=== PATIENT | male | born 1995 | race Caucasian/White ===

== ENCOUNTER 2019-10-14 10:47 | Emergency (ER) | payer SELFPAY ==
--- NOTE | 2019-10-14 12:53 | ED Physician Documentation ---
History of Present Illness - Stated complaint Stated Complaint: MIGRAINE - Chief complaint Chief Complaint: General - History obtained from History obtained from: Patient - History of Present Illness Timing: How many days ago (5) Pain level max: 7 Pain level now: 5 - Additonal information Additional information: 24-year-old male presents to the emergency department with a left-sided headache for the past 5 days. Has a longstanding history of migraine headaches. He states that this is lasting longer than usual. He states that he has a family history of brain aneurysms and is concerned that this may be an aneurysm. Worse with light and sound, better with Excedrin. No seizure activity. No loss of consciousness. No vomiting, occasional nausea. Review of Systems Ten Systems: 10 systems reviewed and negative Constitutional: denies: Fever, Chills Throat: denies: Sore throat Cardiac: denies: Chest pain / pressure Respiratory: denies: Cough GI: denies: Vomiting, Diarrhea Skin: denies: Rash Musculoskeletal: denies: Neck pain, Back pain Neurologic: denies: Focal weakness, Numbness, Seizure, Confused, Altered mental status, Head injury, LOC PD PAST MEDICAL HISTORY - Past Medical History Past Medical History: Yes Cardiovascular: None Respiratory: None Neuro: Migraines Endocrine/Autoimmune: None GI: None : None HEENT: None Psych: None Musculoskeletal: None Derm: None - Past Surgical History Past Surgical History: No - Allergies Allergies/Adverse Reactions: Allergies Allergy/AdvReac Type Severity Reaction Status Date / Time No Known Drug Allergies Allergy Verified 10/14/19 11:10 - Social History Does the pt smoke?: No Smoking Status: Never smoker Does the pt drink ETOH?: No Does the pt have substance abuse?: Yes Substance Use and Type: Marijuana - Immunizations Immunizations are current?: Yes - POLST Patient has POLST: No PD ED PE NORMAL - Vitals Vital signs reviewed: Yes - General General: Alert and oriented X 3, No acute distress, Well developed/nourished - HEENT HEENT: Atraumatic, PERRL, EOMI, Ears normal, Moist mucous membranes, Pharynx benign - Neck Neck: Supple, no meningeal sign, No bony TTP - Cardiac Cardiac: RRR, Strong equal pulses - Respiratory Respiratory: No respiratory distress, Clear bilaterally - Abdomen Abdomen: Soft, Non tender, Non distended - Derm Derm: Warm and dry - Extremities Extremities: Normal ROM s pain - Neuro Neuro: Alert and oriented X 3, fact checker 2-12 intact, No motor deficit, No sensory deficit, Normal speech Eye Opening: Spontaneous Motor: Obeys Commands Verbal: Oriented GCS Score: 15 - Psych Psych: Normal mood, Normal affect Results - Vitals Vitals: Vital Signs - 24 hr 10/14/19 10/14/19 10/14/19 11:10 12:39 14:27 Temperature 37.1 C 36.8 C 37.3 C Heart Rate 70 57 L 100 Respiratory 16 16 18 Rate Blood Pressure 121/79 142/88 H 131/85 H O2 Saturation 98 99 100 Oxygen O2 Source Room air - Rads (name of study) CT angio head Radiology: Prelim report reviewed, EMP read contemporaneously, See rad report (normal) PD MEDICAL DECISION MAKING - ED course Complexity details: reviewed results, considered differential, d/w patient ED course: 24-year-old male with a headache for the past 5 days. Feels better after Imitrex. Was very concerned about potential aneurysm of the brain. No acute findings on CT angiogram. No evidence of subarachnoid hemorrhage. Patient counseled regarding signs and symptoms for which I believe and urgent re- evaluation would be necessary. Patient with good understanding of and agreement to plan and is comfortable going home at this time This document was made in part using voice recognition software. While efforts are made to proofread this document, sound alike and grammatical errors may occur. Departure - Departure Disposition: 01 Home, Self Care Clinical Impression: Migraine Qualifiers: Migraine type: unspecified Status migrainosus presence: without status migrainosus Intractability: not intractable Qualified Code(s): G43.909 - Migraine, unspecified, not intractable, without status migrainosus Condition: Good Instructions: ED Headache Migraine Follow-Up: your,doctor as needed [Other] Comments: the CT angiogram of your head is normal today. We did not see any masses or aneurysms. Follow-up with your doctor for further care. Return if you worsen Discharge Date/Time: 10/14/19 14:39
[2019-10-14] MEDS ORDERED: IOVERSOL 320 100 ML VIAL IVP ONE ×2 (13:07→14:39)
--- NOTE | 2019-10-14 14:13 | CT Report ---
PROCEDURE: ANGIO HEAD W/WO INDICATIONS: L sided headache, fam hx of brain aneurysms CONTRAST: IV CONTRAST: Optiray 320 ml: 80 PO CONTRAST: *NO PO CONTRAST TECHNIQUE: Precontrast 4.5 mm thick angled axial sections acquired from the foramen magnum to the vertex. Afte r the administration of intravenous contrast, 1 mm thick sections acquired through the [place] of [place] is. Postcontrast 4.5 mm thick sections then re-acquired from the foramen magnum to the vertex. 3-di mensional fucqyfp-ffahqcmxp-kwnuqqyays (MIP) and/or volume rendering reformats were acquired of the c entral intracranial vasculature. For radiation dose reduction, the following was used: automated ex posure control, adjustment of mA and/or kV according to patient size. COMPARISON: None FINDINGS: Image quality: Excellent. Anterior circulation: Intracranial internal carotid arteries are normal in size and flow. The flow within the paired anterior cerebral arteries is normal and symmetric. The flow within the middle cer ebral arteries is normal and symmetric. The anterior communicating artery is seen. No aneurysms are seen. Posterior circulation: Visualized portions of the vertebral arteries demonstrate normal caliber, and join to form a normal appearing basilar artery. Flow within the posterior cerebral arteries is norm al and symmetric. No aneurysms are seen. Dural sinuses demonstrate normal postcontrast enhancement. CSF spaces: Ventricles are normal in size and shape. Basal cisterns are patent. No extra-axial flu id collections. Brain: No midline shift. No intracranial bleeds or masses. Aponte-white matter interface appears int act. Skull and face: Calvarium and facial bones appear intact, without suspicious lesions. Sinuses: Right sphenoid sinus mucosal thickening with diffuse sinus wall thickening. Mastoids are michael ar. IMPRESSION: 1. No acute intracranial disease process. 2. No intracranial hemorrhage. 3. No abnormal cranial mass or mass effect. 4. No large vessel occlusion, vascular stenosis, vascular dissection or aneurysm. 5. Severe chronic right sphenoid sinusitis. Reviewed by: Shelby Garrett MD, PhD on 10/14/2019 2:11 PM PDT Approved by: Shelby Garrett MD, PhD on 10/14/2019 2:11 PM PDT Station ID: [id number]
[2019-10-14 14:28] VITALS: BP 131/85
[2019-10-14] MEDS ORDERED: SUMAtriptan 6 MG/0.5 ML VIAL SUBQ STA (14:30)
== END 2019-10-14 14:39 | disposition home or self-care (01) ==
LOC: ED 10:47
DX: G43.909 Migraine, unspecified, not intractable, without status migrainosus (principal)
CPT/HCPCS: 36415; 70496; 96372; 99284; Q9967

== ENCOUNTER 2021-09-21 11:16 | Emergency (ER) | payer MEDICAID ==
[2021-09-21] MEDS ORDERED: HYDROmorphone 1 MG/ML CARPUJECT IVP STA (11:27)
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
[2021-09-21] MEDS ORDERED: ONDANSETRON 4 MG/2 ML VIAL IVP STA (11:33)
[2021-09-21] MEDS ORDERED: fentaNYL 100 MCG/2 ML VIAL IVP STA ×3 (11:33→13:38)
[2021-09-21 11:35] LABS: BASOPHILS # (AUTO) 0.1 10^3/uL (0.0-0.1); BASOPHILS % (AUTO) 0.6 %; EOSINOPHILS # (AUTO) 0.7 10^3/uL (0.0-0.7); EOSINOPHILS % (AUTO) 5.2 %; HCT - HEMATOCRIT 44.2 % (42.0-52.0); HGB - HEMOGLOBIN 15.7 g/dL (14.0-18.0); LYMPHOCYTES # (AUTO) 4.1 10^3/uL (1.5-3.5); LYMPHOCYTES % (AUTO) 32.4 %; MEAN CORPUSCULAR HEMOGLOBIN 31.8 pg (27.0-31.0); MEAN CORPUSCULAR HGB CONC 35.5 g/dL (32.0-36.0); MEAN CORPUSCULAR VOLUME 89.5 fL (80.0-94.0); MEAN PLATELET VOLUME 8.9 fL (7.4-11.4); MONOCYTES # (AUTO) 0.8 10^3/uL (0.0-1.0); MONOCYTES % (AUTO) 6.1 %; NEUTROPHILS # (AUTO) 7.1 10^3/uL (1.5-6.6); NEUTROPHILS % (AUTO) 55.3 %; PLT - PLATELET COUNT 318 10^3/uL (130-450); RED BLOOD COUNT 4.94 10^6/uL (4.70-6.10); RED CELL DISTRIBUTION WIDTH 12.5 % (12.0-15.0); WHITE BLOOD COUNT 12.8 x10^3/uL (4.8-10.8)
[2021-09-21 11:50] LABS: ALBUMIN 4.8 g/dL (3.2-5.5); ALBUMIN/GLOBULIN RATIO 1.7 (1.0-2.2); BILIRUBIN,TOTAL 0.9 mg/dL (0.2-1.0); CALCIUM 10.2 mg/dL (8.5-10.3); CREATININE 1.1 mg/dL (0.6-1.2); POTASSIUM 3.6 mmol/L (3.5-5.0); TOTAL PROTEIN 7.6 g/dL (6.7-8.2)
[2021-09-21 12:03] VITALS: BP 163/138
[2021-09-21] MEDS ORDERED: SODIUM CHLORIDE 0.9% 1,000 ML IV STA (12:18)
[2021-09-21] MEDS ORDERED: fentaNYL 100 MCG/2 ML VIAL ONE (12:19)
[2021-09-21] MEDS ORDERED: KETOROLAC 30 MG/ML VIAL IVP STA (12:49)
--- NOTE | 2021-09-21 13:42 | Ultrasound Report ---
PROCEDURE: Testicle w/Doppler Limited INDICATIONS: left testicular pain; ? torsion TECHNIQUE: Real-time scanning was performed of the scrotum and testicles, with image documentation. Color and p ulse Doppler interrogation was performed of both testicles. COMPARISON: None. FINDINGS: Right: Testicle is normal in size at 4.9 x 2.4 x 3.4 cm, and homogenous in echotexture. No grayscale changes in the testicle to suggest torsion or mass. Epididymis is normal in overall size and morphol ogy. No hydrocele or varicoceles. Overlying scrotal skin is normal in thickness. Left: Testicle is normal in size at 5.6 x 2.3 x 3.4 cm, and homogeneous in echotexture. No negron scal e changes in the testicle to suggest torsion 4 mass. Epididymis is normal in overall size and morphol ogy. No hydrocele or varicoceles. Overlying scrotal skin is normal in thickness. Doppler: Color and pulse Doppler demonstrate normal and symmetric arterial flow in both testicles. IMPRESSION: Normal scrotal ultrasound. Reviewed by: Derrell Roblero MD on 09/21/2021 1:40 PM PDT Approved by: Derrell Roblero MD on 09/21/2021 1:40 PM PDT Station ID: [id number]
--- NOTE | 2021-09-21 13:45 | CT Report ---
PROCEDURE: Abdomen/Pelvis WO INDICATIONS: Sudden onset left testicular pain, question ureteral colic. TECHNIQUE: Noncontrast 5 mm thick sections acquired from the diaphragms to the symphysis. 5 mm coronal and sagi ttal reformats were then performed. For radiation dose reduction, the following was used: automated exposure control, adjustment of mA and/or kV according to patient size. COMPARISON: None. FINDINGS: Mildly distended/dilated left ureter with periureteric fat stranding. The right ureter is unremarkabl e. There is no hydronephrosis or perinephric fat stranding. There is a nonobstructing punctate left r enal calculus in the upper pole measuring approximately 1 mm. Otherwise normal appearance of the kidn eys. The urinary bladder is normal. Unremarkable unenhanced CT appearance of the liver, spleen, gallbladder, pancreas, and adrenal glands . No acute enteric process. The unenhanced aorta is within normal limits. No threshold enlarged intra -abdominal, retroperitoneal, pelvic, or inguinal lymph node. No significant osseous abnormality demon strated. IMPRESSION: Fluid distention and borderline dilatation of the left ureter with periureteric fat stranding in the mid and distal segments. Findings suggest recent stone passage given the provided clinical history. Nonobstructing punctate 1 mm calculus in the left upper pole kidney. No additional urinary tract calculus or hydroureteronephrosis. Reviewed by: Derrell Roblero MD on 09/21/2021 1:44 PM PDT Approved by: Derrell Roblero MD on 09/21/2021 1:44 PM PDT Station ID: [id number]
[2021-09-21 14:12] LABS: BILIRUBIN,URINE NEGATIVE (NEGATIVE); GLUCOSE, URINE (UA) NEGATIVE (NEGATIVE); KETONES,URINE (UA) NEGATIVE (NEGATIVE); LEUKOCYTE ESTERASE, URINE NEGATIVE (NEGATIVE); NITRITE,URINE NEGATIVE (NEGATIVE); OCCULT BLOOD,URINE LARGE (NEGATIVE); PROTEIN,URINE NEGATIVE (NEGATIVE); UROBILINOGEN,URINE 0.2 (NORMAL) E.U./dL (NORMAL)
[2021-09-21 14:23] LABS: CLARITY,URINE CLEAR (CLEAR)
[2021-09-21 14:24] LABS: BACTERIA,URINE None Seen /HPF (None Seen); SQUAMOUS EPITHELIAL CELL,UR NONE SEEN (<= Few); WBC,URINE 0-3 /HPF (0-3)
== END 2021-09-21 14:34 | disposition home or self-care (01) ==
LOC: ED 11:16
DX: N36.8 Other specified disorders of urethra (principal)
CPT/HCPCS: 36415; 74176; 76870; 80053; 81001; 83690; 85025; 93976; 96374; 96375; 96376; 99283; 99285; J1170; 81003; 87086

== ENCOUNTER 2022-05-31 10:28 | Outpatient (CLI) | payer MEDICAID ==
--- NOTE | 2022-05-31 11:26 | XRAY Report ---
PROCEDURE: Shoulder 3 View LT INDICATIONS: LEFT SHOULDER PAIN TECHNIQUE: 4 views of the shoulder were acquired. COMPARISON: None. FINDINGS: Bones: No fractures or dislocations. No suspicious bony lesions. Visualized ribs appear intact. Soft tissues: No suspicious soft tissue calcifications. IMPRESSION: No acute bony abnormality. Reviewed by: Ashu Ram on 05/31/2022 11:25 AM [facility] Approved by: Ashu Ram on 05/31/2022 11:25 AM [facility] Station ID: [id number]
== END 2022-05-31 10:29 | disposition home or self-care (01) ==
LOC: DI.WOS 10:28
PROVIDERS: ATTEND Orthopaedic Surgery
DX: M25.512 Pain in left shoulder (principal)

== ENCOUNTER 2023-11-05 11:49 | Outpatient (CLI) | payer SELFPAY | END 2023-11-05 23:59 | disposition critical access hospital (66) | LOC: EMS 11:49 | DX: R55 Syncope and collapse (principal); R42 Dizziness and giddiness; R61 Generalized hyperhidrosis; Z20.822 Contact with and (suspected) exposure to COVID-19 | CPT/HCPCS: A0425; A0429 ==

== ENCOUNTER 2023-11-05 12:18 | Emergency (ER) | payer SELFPAY ==
[2023-11-05 12:35] VITALS: O2SAT 98
--- NOTE | 2023-11-05 12:51 | XRAY Report ---
PROCEDURE: Chest 1V INDICATIONS: chest pain TECHNIQUE: One view of the chest was acquired. COMPARISON: 02/21/2022. FINDINGS: Surgical changes and devices: None. Lungs and pleura: No pleural effusions or pneumothorax. Lungs are clear. Mediastinum: Mediastinal contours appear normal. Heart size is normal. Bones and chest wall: No suspicious bony lesions. Overlying soft tissues appear unremarkable. IMPRESSION: No acute cardiopulmonary process. Reviewed by: John Franco MD on 11/05/2023 12:50 PM PDT Approved by: John Franco MD on 11/05/2023 12:50 PM PDT Station ID: [id number]
[2023-11-05 13:03] LABS: BASOPHILS # (AUTO) 0.1 10^3/uL (0.0-0.1); BASOPHILS % (AUTO) 0.7 %; EOSINOPHILS # (AUTO) 0.3 10^3/uL (0.0-0.7); EOSINOPHILS % (AUTO) 4.1 %; HCT - HEMATOCRIT 47.5 % (42.0-52.0); HGB - HEMOGLOBIN 16.2 g/dL (14.0-18.0); LYMPHOCYTES # (AUTO) 1.8 10^3/uL (1.5-3.5); LYMPHOCYTES % (AUTO) 22.9 %; MEAN CORPUSCULAR HEMOGLOBIN 30.3 pg (27.0-31.0); MEAN CORPUSCULAR HGB CONC 34.1 g/dL (32.0-36.0); MONOCYTES # (AUTO) 0.5 10^3/uL (0.0-1.0); MONOCYTES % (AUTO) 6.6 %; NEUTROPHILS % (AUTO) 65.4 %; PLT - PLATELET COUNT 302 10^3/uL (130-450); RED BLOOD COUNT 5.34 10^6/uL (4.70-6.10); RED CELL DISTRIBUTION WIDTH 12.2 % (12.0-15.0); WHITE BLOOD COUNT 7.6 x10^3/uL (4.8-10.8)
[2023-11-05 13:13] LABS: ALBUMIN 4.8 g/dL (3.2-5.5); ALBUMIN/GLOBULIN RATIO 1.8 (1.0-2.2); BILIRUBIN,TOTAL 0.7 mg/dL (0.2-1.0); CALCIUM 10.1 mg/dL (8.5-10.3); CREATININE 0.9 mg/dL (0.6-1.3); TOTAL PROTEIN 7.4 g/dL (6.4-8.9)
--- NOTE | 2023-11-05 13:17 | ED Physician Documentation ---
PD HPI SYNCOPE - Stated complaint Stated Complaint: SYNCOPAL EPISODE - Chief complaint Chief Complaint: Neuro - History obtained from History obtained from: Patient - Additional information Additional information: This is a very nice 28-year-old male who has no significant past medical history who presents after a possible syncopal episode at home. 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 He ate in the unit was sitting on the couch, felt dizzy, stood up to try to move around, and then believes he passed out. He states he thinks he was out for approximately 5 minutes. This was unwitnessed, But patient states he does not believe he had any injuries in the fall. He did not have any incontinence, no tongue biting orOther injuries. He feels back to baseline now. This is never happened to him before. He denies any new medications, supplements, no drugs or alcohol, ate and drink per normal today, feels that he is staying well-hydrated, denies any exposure to any chemicals at work, has no personal or family history of early heart disease, has not had any issues with shortness of breath, chest pain, dizziness with activity in the past. Review of Systems Constitutional: reports: Reviewed and negative Eyes: reports: Reviewed and negative Ears: reports: Reviewed and negative Nose: reports: Reviewed and negative Throat: reports: Reviewed and negative Cardiac: reports: Reviewed and negative Respiratory: reports: Reviewed and negative GI: reports: Reviewed and negative : reports: Reviewed and negative Skin: reports: Reviewed and negative Musculoskeletal: reports: Reviewed and negative Neurologic: reports: Syncope PD PAST MEDICAL HISTORY - Past Medical History Past Medical History: Yes Cardiovascular: None Respiratory: None Neuro: Migraines Endocrine/Autoimmune: None GI: None : None HEENT: None Psych: Anxiety Musculoskeletal: None Derm: None - Past Surgical History Past Surgical History: No - Present Medications Home Medications: Ambulatory Orders Medication Instructions Recorded Confirmed oxyCODONE [Roxicodone] 5 mg PO TID PRN #10 tablet 09/21/21 HYDROcod/ACETAM 5/325 [Hobbs 5/325] 1 ea PO Q6H PRN #15 tablet 02/21/22 Ondansetron Odt [Zofran] 4 mg TL Q6H PRN #20 tablet 02/21/22 Pantoprazole [Protonix] 40 mg PO DAILY 30 Days #30 tablet 02/21/22 Sucralfate [Carafate] 1 gm PO ACHS #40 tablet 02/21/22 - Allergies Allergies/Adverse Reactions: Allergies Allergy/AdvReac Type Severity Reaction Status Date / Time ketamine Allergy Respiratory Verified 11/05/23 12:34 - Social History Does the pt smoke?: No Smoking Status: Never smoker Does the pt drink ETOH?: No Does the pt have substance abuse?: No Substance Use and Type: Marijuana - Immunizations Immunizations are current?: Yes - POLST Patient has POLST: No PD ED PE NORMAL - Vitals Vital signs reviewed: Yes - General General: Alert and oriented X 3, No acute distress, Well developed/nourished - HEENT HEENT: Atraumatic, PERRL, EOMI, Moist mucous membranes, Pharynx benign - Neck Neck: Supple, no meningeal sign, No JVD - Cardiac Cardiac: RRR, No murmur, No gallop, No rub - Respiratory Respiratory: No respiratory distress, Clear bilaterally - Abdomen Abdomen: Normal bowel sounds, Soft, Non tender, Non distended - Extremities Extremities: No deformity, No tenderness to palpate, Normal ROM s pain, No edema, No calf tenderness / cord - Neuro Neuro: Alert and oriented X 3, cleaning validation consultant 2-12 intact, No motor deficit, No sensory deficit, Normal speech Eye Opening: Spontaneous Motor: Obeys Commands Verbal: Oriented GCS Score: 15 - Psych Psych: Normal mood, Normal affect Results - Vitals Vitals: Vital Signs - 24 hr 11/05/23 11/05/23 11/05/23 12:30 12:34 14:34 Temperature 36.6 C Heart Rate 77 74 69 Respiratory 18 16 20 Rate Blood Pressure 136/89 H 124/76 92/72 O2 Saturation 98 97 98 Oxygen O2 Source Room air - EKG (time done) No standard instances EKG releavant findings:: EKG personally interpreted by author of this note. Relevant findings are: Rate: Rate (enter#) (65) Rhythm: NSR [place]: LAD Intervals: Normal VA QRS: Normal Ischemia: Normal ST segments Other comments: Other comments (APCs) Compare to prior EKG: Old EKG unavailable Computer interpretation: Agree with computer - Labs Labs: Laboratory Tests 11/05/23 11/05/23 11/05/23 12:44 12:44 12:44 WBC 7.6 RBC 5.34 Hgb 16.2 Hct 47.5 MCV 89.0 MCH 30.3 MCHC 34.1 RDW 12.2 Plt Count 302 MPV 9.0 Neut # (Auto) 5.0 Lymph # (Auto) 1.8 [place] # (Auto) 0.5 Eos # (Auto) 0.3 Baso # (Auto) 0.1 Absolute Nucleated RBC 0.00 Nucleated RBC % 0.0 Sodium 136 Potassium 4.0 Chloride 104 Carbon Dioxide 26 Anion Gap 6.0 BUN 11 Creatinine 0.9 Estimated GFR (MDRD) 99 Glucose 103 Calcium 10.1 Total Bilirubin 0.7 AST 13 ALT 11 Alkaline Phosphatase 59 Troponin I High Sens < 2.3 L Total Protein 7.4 Albumin 4.8 Globulin 2.6 Albumin/Globulin Ratio 1.8 Lipase 18 PD Medical Decision Making - ED course Complexity details: reviewed results, re-evaluated patient, considered differential, d/w patient ED course: 28-year-old male presented after syncopal episode at home today as described in HPI. Differentials considered included vasovagal syncope, seizure activity, ACS, stroke, dehydration, electrolyte abnormality, orthostatic hypotension, olimpia vular disorder, drug or chemical exposure among others. He is well appearing on arrival and in no acute distress, awake alert with a normal neuroexam. Patient has no complaints at this time. We obtained an EKG which shows a normal sinus rhythm with sinus arrhythmia rate of 65, no ischemic changes, and his labs are reassuring. Patient does not have any symptoms of UTI and he denies any drug or alcohol use or chemical exposure. He was unable to provide a urine sample here. I do believe the patient is stable for discharge home. Not clear what caused his episode of syncope but likely a vasovagal event. He has no personal or family history of early heart disease and a think that this is unlikely. Encouraged him to stay well-hydrated, mostly from a seated to standing position, and return if he developed recurrence of symptoms or new concerns. Advised PCP follow up within 1 week, consider outpt echo. Departure - Departure Disposition: 01 Home, Self Care Clinical Impression: Syncope Qualifiers: Syncope type: unspecified Qualified Code(s): R55 - Syncope and collapse Condition: Good Instructions: ED Syncope Vasovagal Comments: ruben Palmer sounds like you had an episode of vasovagal syncope. Your workup today was reassuring, your electrolytes and blood count are normal and your heart labs are normal. Your EKG does not show any signs of a heart attack. You are st able for discharge home at this time, but I would like you to follow-up with your primary doctor within the next week, and they may refer you outpatient to cardiology or for an ultrasound. If you have recurrent episodes please return to the ER. Forms: PCP List Discharge Date/Time: 11/05/23 14:44
[2023-11-05 14:55] VITALS: BP 92/72
== END 2023-11-05 14:44 | disposition home or self-care (01) ==
LOC: EDUNIT# → ED 12:18
DX: R55 Syncope and collapse (principal); Z79.899 Other long term (current) drug therapy
CPT/HCPCS: 36415; 80053; 83690; 84484; 85025; 93005; 99283; 99284